=== PATIENT | female | born 1990 | race African-American/Black ===

== ENCOUNTER 2018-03-09 23:21 | Emergency (ER) | payer SELFPAY ==
[~2018-03-09] VITALS: Ht 167.6 cm; Wt 46.0 kg
[2018-03-09 23:38] VITALS: BP 140/77
== END 2018-03-10 04:30 | disposition left against medical advice (07) ==
LOC: ER 23:21
DX: R07.89 Other chest pain (principal); M54.5 Low back pain; R10.30 Lower abdominal pain, unspecified; F17.200 Nicotine dependence, unspecified, uncomplicated; Z53.21 Procedure and treatment not carried out due to patient leaving prior to being seen by health care provider